=== PATIENT | female | born 1980 | race Caucasian/White ===

== ENCOUNTER 2021-06-07 20:38 | Emergency (ER) | payer OTHER, SELFPAY ==
[2021-06-07 20:51] VITALS: BP 150/91; PULSE 108; RESP 18; TEMP 36.8; O2SAT 97; BMI 25.7
--- NOTE | 2021-06-07 20:55 | ECG_ITS ---
Test Reason : PALPITATIONS Blood Pressure : / mmHG Vent. Rate : 085 BPM Atrial Rate : 085 BPM P-R Int : 144 ms QRS Dur : 078 ms QT Int : 372 ms P-R-T Axes : 052 050 035 degrees QTc Int : 442 ms Normal sinus rhythm Normal ECG No previous ECGs available Referred By: Generic ED Physician Electronically Signed By:TRISTIN VAZQUEZ
[2021-06-07 21:48] VITALS: BP 123/75; PULSE 80; RESP 16; TEMP 36.9; O2SAT 99
[2021-06-07 22:34] LABS: Basophils Percent Auto 0.5 % (0-2); Eosinophils Absolute Auto 0.2 X10*3/uL (0.0-0.4); Eosinophils Percent Auto 2.3 % (0-4); Hemoglobin 12.2 g/dl (12.0-16.0); Imm Gran Abs Auto 0.01 X10*3/uL (0.00-0.03); Imm Gran Pct Auto 0.1 % (0.0-0.4); Lymphocytes Absolute Auto 2.4 X10*3/uL (1.2-4.9); Lymphocytes Percent Auto 32.2 % (20-40); MANUAL DIFF FLAG NO; Mean Corpuscular HGB Conc 33.9 g/dl (31.0-35.0); Mean Corpuscular Hemoglobin 31.1 pg (27.0-33.0); Mean Corpuscular Volume 91.8 fL (80-98); Mean Platelet Volume 9.7 fL (9.4-12.3); Monocytes Absolute Auto 0.6 X10*3/uL (0.1-1.2); Monocytes Percent Auto 7.5 % (2-11); Neutrophils Absolute Auto 4.2 X10*3/uL (2.0-8.3); Neutrophils Percent Auto 57.4 % (45-73); Platelet Count 287 X10*3/uL (160-400); Red Blood Count 3.92 X10*6/uL (4.20-5.50); Red Cell Distribution Width 12.4 % (11.0-16.0); White Blood Count 7.4 X10*3/uL (4.8-10.8)
[2021-06-07 22:55] LABS: Alanine Aminotransferase 11 U/L (0-31); Albumin Level 4.3 g/dL (3.5-5.0); Alkaline Phosphatase 37 U/L (39-117); Anion Gap 13 (12-20); Aspartate Amino Transferase 12 U/L (5-31); Bilirubin Total 0.3 mg/dL (0.0-1.0); Blood Urea Nitrogen 15 mg/dL (9-16); Calcium 9.5 mg/dL (8.4-10.2); Carbon Dioxide 25 mmol/L (22-29); Chloride 106 mmol/L (96-108); Creatinine Clr Calc Pharmacy 91.5; Estimated Glomerular Filt Rate > 60; Glucose Random 103 mg/dL (60-115); Potassium 3.9 mmol/L (3.3-5.1); Sodium 140 mmol/L (135-145); Total Protein 7.2 g/dL (6.5-8.0)
[2021-06-07 22:58] LABS: Troponin-I High Sensitivity < 3.5 ng/L (<3.5-17.0)
[2021-06-07 23:15] LABS: TSH reflex Free T4 1.04 uIU/mL (0.32-4.0)
--- NOTE | 2021-06-08 00:35 | ED_ITS ---
HPI - General Adult General Chief complaint: Anxiety Stated complaint: anxiety Time Seen by Provider: 06/07/21 21:45 Source: patient Mode of arrival: ambulatory Limitations: no limitations History of Present Illness HPI narrative: 41-year-old female who presents emergency department for evaluation heart palpitations. The patient's mother in December of 2020. She states that since then she has been having anxiety attacks and feeling heart palpitations. She describes the palpitations as a heart racing sensation associated with perspiration of her palm side, lightheadedness and numbness and tingling of her fingers. She states that the symptoms become more frequently especially over the last 3 days. She states that she sometimes feels panicked when she gets the symptoms as well. She states that her mother's birthday was several days ago and she believes that this has caused her to have increased stress and increased anxiety. The patient denied fever, chills, cough, chest pain, shortness of breath, dyspnea on exertion, nausea, vomiting, change in her bowel movements, weight loss or weight gain. Related Data Allergies Allergy/AdvReac Type Severity Reaction Status Date / Time No Known Allergies Allergy Verified 06/07/21 20:50 Review of Systems Review of Systems: Yes all other systems are reviewed and are negative COUNTS INCLUDE 234 BEDS AT THE [facility] Past Medical History COUNTS INCLUDE 234 BEDS AT THE [facility] Narrative: Social history: The patient denies tobacco. She occasionally drinks alcohol. She denies drug use. Medical History Asthma Social History Social History Advance Directives: No Advance Directives Information Provided: No Physical Exam Vital Signs: Vital Signs: Last Vital Signs Temp 98.5 F 06/07/21 21:48 Pulse 80 06/07/21 21:48 Resp 16 06/07/21 21:48 BP 123/75 06/07/21 21:48 Pulse Ox 99 06/07/21 21:48 Body Mass Index 25.7 Const: Other: Awake, alert female, very pleasant cooperative, she does appear to be anxious, she is tearful. HENMT: Head: Yes normal to inspection, Yes normocephalic and Yes atraumatic Ears: external ears normal General nose exam: Normal external nose present Face and sinus: Yes normal facial exam Mouth: Normal oral and palatal mucosa present Throat: Yes posterior oropharynx normal Eyes: General: appearance normal, both eyes and all related structures Pupils: Equal, round and reactive pupils present Neck: Neck: Yes normal visual inspection, Yes no lymphadenopathy, Yes trachea midline and Yes supple Chest: Chest palpation & inspection: normal inspection of the chest and normal palpation of entire chest wall Resp: Effort & Inspection: normal respiratory effort and able to speak in complete sentences Auscultation: clear to auscultation bilaterally Cardio: Rate: regular rate Rhythm: regular rhythm Heart sounds: S1 normal heart sound present, S2 normal heart sound present and no murmurs GI: Inspection: Yes normal to inspection Palpation (GI): Soft to palpation, nontender and no guarding Auscultation: normal bowel sounds : General: Yes no CVA tenderness Back/Spine/Pelvis: Back: no CVA tenderness Skin: General skin exam: no rashes or lesions noted Neuro: Cranial nerves: Yes CN's II-XII intact bilaterally and Yes Equal, round and reactive pupils present Cognition (Neuro): normal cognition Motor exam (neuro): 5/5 motor strength present throughout Extrem: General: Yes normal to inspection Psych: Appearance: grossly normal Speech and movement: Normal speech and movement present Affect: Sad affect present and Anxious affect present Attitude: cooperative Thought process: Normal thought process present Thought content: Normal thought content present Course Course Course Narrative: 41-year-old female who presents emergency department for evaluation of palpitations and anxiety. Vital signs revealed hypertension with a blood pressure of 150/91 and tachycardia with a pulse of 108, otherwise vital signs were normal. The patient's physical examination was unremarkable. Patient's pulse and blood pressure improved without any treatment. The patient's 12 EKG was unremarkable. The patient's laboratory evaluation revealed a normal CBC, CMP, non elevated troponin and normal TSH. I did discuss treatment of palpitations and anxiety with the patient. At this time the patient does not want any medications but will follow-up with her PCP to discuss possible further treatment as an outpatient. The patient was discharged home. The patient was advised to follow-up with her PCP in 2 days and to return to the emergency department if her symptoms get worse or if she develops any new symptoms that are concerning to her. Medical Decision Making Lab Data Result diagrams: 06/07/21 22:29 06/07/21 22:29 Labs: Lab Results 06/07/21 06/07/21 06/07/21 Range/Units 22:29 22:29 22:29 WBC 7.4 (4.8-10.8) X10*3/uL RBC 3.92 L (4.20-5.50) X10*6/uL Hgb 12.2 (12.0-16.0) g/dl Hct 36.0 L (37-47) % MCV 91.8 (80-98) fL MCH 31.1 (27.0-33.0) pg MCHC 33.9 (31.0-35.0) g/dl RDW 12.4 (11.0-16.0) % Plt Count 287 (160-400) X10*3/uL MPV 9.7 (9.4-12.3) fL Immature Gran % (Auto) 0.1 (0.0-0.4) % Neut % (Auto) 57.4 (45-73) % Lymph % (Auto) 32.2 (20-40) % [place] % (Auto) 7.5 (2-11) % Eos % (Auto) 2.3 (0-4) % Baso % (Auto) 0.5 (0-2) % Lymph # (Auto) 2.4 (1.2-4.9) X10*3/uL [place] # (Auto) 0.6 (0.1-1.2) X10*3/uL Eos # (Auto) 0.2 (0.0-0.4) X10*3/uL Baso # (Auto) 0.0 (0.0-0.2) X10*3/uL Abs Immat Gran (auto) 0.01 (0.00-0.03) X10*3/uL Absolute Neuts (auto) 4.2 (2.0-8.3) X10*3/uL Absolute Nucleated RBC 0.000 (0.0-0.012) X10*3/uL Nucleated RBC % (auto) 0.0 (0.0-0.2) /100WBC Sodium 140 (135-145) mmol/L Potassium 3.9 (3.3-5.1) mmol/L Chloride 106 (96-108) mmol/L Carbon Dioxide 25 (22-29) mmol/L Anion Gap 13 (12-20) BUN 15 (9-16) mg/dL Creatinine 0.78 (0.5-1.4) mg/dL Estim Creat Clear Calc 91.5 Estimated GFR > 60 Random Glucose 103 (60-115) mg/dL Calcium 9.5 (8.4-10.2) mg/dL Total Bilirubin 0.3 (0.0-1.0) mg/dL AST 12 (5-31) U/L ALT 11 (0-31) U/L Alkaline Phosphatase 37 L (39-117) U/L Troponin I High Sens < 3.5 (<3.5-17.0) ng/L Total Protein 7.2 (6.5-8.0) g/dL Albumin 4.3 (3.5-5.0) g/dL TSH 1.04 (0.32-4.0) uIU/mL ECG Data Attestation: I personally reviewed and interpreted this ECG as follows: Interpretation: 2222: Normal sinus rhythm rate of 85, normal GA, QRS duration and QTC interval, normal T-waves, no ST segment elevation, no ST segment depression, no PVCs, this is a normal EKG. Discharge Plan Discharge Clinical Impression: Acute anxiety, Palpitation Patient Disposition: Home, Self-Care Instructions: Heart Palpitations (ED), Panic Disorder (ED) Additional Instructions: Your EKG was normal. Your laboratory evaluation was normal, your thyroid tests were normal. Your troponin (marker of heart damage) was normal. Your symptoms are consistent with stress and anxiety. You should discuss further treatment with your doctor, sometimes starting antidepressant and antianxiety medications help with these types of symptoms. Follow-up with your doctor in 2 days. Please return to the emergency department if your symptoms get worse or if you develop any symptoms that are concerning to you.
== END 2021-06-08 00:45 | disposition home or self-care (01) ==
PROVIDERS: Emergency Provider Emergency Medicine Emergency Medical Services; PCP Pediatrics
DX: R00.2 Palpitations (principal); F41.9 Anxiety disorder, unspecified
CPT/HCPCS: 36415; 80053; 84443; 84484; 85025; 93005; 99283; 99284